=== PATIENT | female | born 1995 | race Caucasian/White ===

== ENCOUNTER 2019-01-23 14:33 | Emergency (ER) | payer MEDICAID ==
[~2019-01-23] VITALS: Ht 147.3 cm; Wt 52.6 kg
[2019-01-23 14:47] VITALS: Ht 147.3 cm; Wt 52.6 kg
[2019-01-23 15:40] VITALS: BP 119/69
== END 2019-01-23 15:40 | disposition home or self-care (01) ==
LOC: ED 14:33
DX: H66.92 Otitis media, unspecified, left ear (principal); J06.9 Acute upper respiratory infection, unspecified